=== PATIENT | female | born 1985 | race Caucasian/White ===

== ENCOUNTER 2016-07-07 17:05 | Emergency (ER) | payer SELFPAY ==
[2014-03-17 05:20] VITALS: BMI 32.5
[~2016-07-07 17:05] MED LIST: IBUPROFEN600 MG PO; PERCOCET 5-3251 TAB PO; PRENATAL COMPLE1 TAB PO
== END 2016-07-07 19:20 | disposition home or self-care (01) ==
LOC: D.ER 17:05
DX: J06.9 Acute upper respiratory infection, unspecified (principal); J20.9 Acute bronchitis, unspecified; F17.200 Nicotine dependence, unspecified, uncomplicated

== ENCOUNTER 2019-11-30 19:42 | Emergency (ER) | payer MEDICAID ==
[~2019-11-30] VITALS: Ht 165.1 cm; Wt 61.4 kg
[2019-11-30 19:46] VITALS: BP 126/87; Ht 165.1 cm; Wt 61.4 kg
== END 2019-12-01 02:20 | disposition left against medical advice (07) ==
LOC: D.ER 19:42
DX: T63.301A Toxic effect of unspecified spider venom, accidental (unintentional), initial encounter (principal)